=== PATIENT | male | born 1950 | race Caucasian/White ===

== ENCOUNTER → 2018-02-18 | Outpatient (CLI) | payer OTHER ==
[~2018-02-18] MED LIST: DIAZEPAM 10 MG TABLET. ONE; IOHEXOL 350 MG/ML 100 ML VIAL. ONE; IOHEXOL 350 MG/ML 50 ML VIAL. ONE; IV NORMAL SALINE 1000ML BAG 1,000 ML ONE; LIDOCAINE 1% Multi-Dose 50 ML VIAL. ONE; MIDAZOLAM HCL/PF 2 MG/2 ML VIAL. ONE; fentaNYL PF VIAL 100 MCG/2 ML VIAL ONE; hydrALAZINE 20 MG/ML VIAL. ONE
--- NOTE | 2018-02-19 11:12 | PCVCINTER ---
APPROVED REPORT Study performed: 02/18/2018 08:36:48 Patient Details Patient Status: Out-Patient Room #: 2 The patient is a 67 year-old Male Event Personnel Dontrell Garvin RT(R), Yesi Morin RN, Gen Mcconnell RT(R)(), Ekta Norris MD Indication Abnormal ECG, Dyspnea, Pre-op clearance Risk Factors HypercholesterolemiaPhysical Activity, Hypertension, Last Creatanine 0.9Tobacco History (Current/Recent(w/in 1 year)) Procedure Narrative The patient was brought electively to the Cardiac Catheterization Laboratory and was prepped and draped in a sterile manner. The right femoral was infiltrated with 1% Lidocaine subcutaneous anesthesia. A 4F sheath was inserted into the right femoral artery. Coronary angiography was performed using coronary diagnostic catheters. The right coronary system was accessed and visualized with a JR4 catheter. The left coronary system was accessed and visualized with a JL4 catheter. The left ventricle was accessed and visualized with a Angled Pigtail catheter. Left ventricular/Aortic Valve gradient assessed . Left ventriculogram was performed in MEZA projection. Hemostasis was obtained with manual pressure following sheath removal without any complications. The patient tolerated the procedure well and there were no complications associated with the procedure. There was no hematoma. Coronary Angiography The patient's coronary anatomy is right dominant. Diagnostic Cath Left MainThis is a patent vessel, with no flow-limiting lesions. LADThis is a moderate size caliber vessel, traversing the anterior wall and wrapping around the apex. There is a borderline stenosis, 50-70% in the proximal segment. Diagonal 1This is a patent vessel, with no flow-limiting lesions. CircumflexThis is a patent vessel, with no flow-limiting lesions. BU9Osjl is a moderate size caliber vessel, traversing the anterolateral wall and supplying several branches. This is a patent vessel with no flow-limiting lesions. FP5Hben is a small-caliber vessel, with no flow-limiting lesions. Right CoronaryThere is a severe, discrete stenosis at the distal segment, 80%. Supplies 2 small branches, PDA and RPL. Recommend medical therapy. Left Ventriculography The left ventricle is normal in size with normal contractility. The left ventricular ejection fraction is estimated to be 65%. Hemodynamics The aortic pressure is 132/65 mmHg with a mean of 94 mmHg. The left ventricular pressure is 136/1 mmHg with a mean of 14 mmHg. Conclusion 1. There is a borderline stenosis in the LAD. Recommend medical therapy. 2. There is a severe stenosis at the distal segment of the RCA, supplies 2 small branches. Medical therapy is recommended. 3. Normal LV systolic function. 4. Recommend aggressive risk factor management.
== END | disposition home or self-care (01) ==
LOC: PCVCINTER 08:14
PROVIDERS: ATTEND Internal Medicine Cardiovascular Disease
DX: I25.10 Atherosclerotic heart disease of native coronary artery without angina pectoris (principal); R94.31 Abnormal electrocardiogram [ECG] [EKG]; E78.00 Pure hypercholesterolemia, unspecified; I10 Essential (primary) hypertension; R60.9 Edema, unspecified; I65.23 Occlusion and stenosis of bilateral carotid arteries; Z72.0 Tobacco use; Z79.899 Other long term (current) drug therapy; Z79.82 Long term (current) use of aspirin; Z98.890 Other specified postprocedural states
CPT/HCPCS: 93458; C1751; C1769; C1894; J0360; J1644; J2250; J3010; J7030; Q9967

== ENCOUNTER → 2018-02-18 | Outpatient (CLI) | payer OTHER | END | disposition home or self-care (01) | LOC: PCVCCLINIC 12:52 | PROVIDERS: ATTEND Internal Medicine Cardiovascular Disease | DX: I25.10 Atherosclerotic heart disease of native coronary artery without angina pectoris (principal); I10 Essential (primary) hypertension; E78.00 Pure hypercholesterolemia, unspecified; R60.9 Edema, unspecified; F17.200 Nicotine dependence, unspecified, uncomplicated; Z79.82 Long term (current) use of aspirin | CPT/HCPCS: G0463 ==

== ENCOUNTER → 2018-03-14 | Outpatient (CLI) | payer OTHER ==
[~2018-03-14] MED LIST changes: -DIAZEPAM 10 MG TABLET. ONE; -IOHEXOL 350 MG/ML 100 ML VIAL. ONE; -IOHEXOL 350 MG/ML 50 ML VIAL. ONE; -IV NORMAL SALINE 1000ML BAG 1,000 ML ONE; -LIDOCAINE 1% Multi-Dose 50 ML VIAL. ONE; -MIDAZOLAM HCL/PF 2 MG/2 ML VIAL. ONE; +REGADENOSON 0.4 MG/5 ML DISP.SYRIN. IV ONE; -fentaNYL PF VIAL 100 MCG/2 ML VIAL ONE; -hydrALAZINE 20 MG/ML VIAL. ONE
--- NOTE | 2018-03-14 15:52 | PCVCIMAG ---
APPROVED REPORT Imaging Protocol: Rest Tc-99m/Stress Tc-99m 1 day Study performed: 03/14/2018 13:36:26 Indication: Abnormal EKG, CAD Patient Location: Out-Patient Stress Nurse: Kristy Cortes RN [place] Tech:Jackie SantiagoSHAYLAMT Ht: 5 ft 7 in Wt: 210 lbs BSA: 2.07 m2 HR: 77 bpm BP: 172/82 mmHg BMI: 32.88 Rhythm: Sinus Rhythm, RBBB, LBBB Medical History Medical History: HTN, Hyperlipidemia, Current Smoker Medications: ASA, Atrovastatin, Carvedilol Allergies: No known drug allergies Cardiac Risk Factors: Age Previous Cardiac Procedures: CATH 02/2018 Pretest Chest Pain Characteristics: No chest pain Exercise History: Sedentary Resting Data Rest SPECT myocardial perfusion imaging was performed in supine position 45 minutes following the intravenous injection of 10.7 mCi of Tc-99m Sestamibi. Time of rest injection: 1230 Administration Route: IV Administration Site: Right AC Pharmacologic Stress Pharmacologic stress test was performed by injecting Regadenoson 0.4 mg IV push over 10-15 seconds immediately followed by the intravenous injection of 3.4 mCi of Tc-99m Sestamibi. Time of stress injection: 1430 Date: 03/14/2018 Administration Route: IV Administration Site: Right AC Gated Stress SPECT was performed 40 minutes after stress injection. The images were gated to evaluate regional wall motion and calculate left ventricular ejection fraction. Stress Test Details Stress Test: Pharmacologic stress testing performed using 0.4 mg of regadenoson per 5 mL given IV over 10 seconds. Reason for pharmacologic stress test: doesn't walk with out aid. HRMax Heart Rate (APMHR): 150 bpm Resting HR: 77 bpmTarget HR (85% APMHR): 127 bpm Max HR Achieved: 109 bpm % of APMHR: 72 Recovery HR: 90 bpm BP Resting BP: 172/82 mmHg Max BP: 166/81 mmHg Recovery BP: 189/98 mmHg ECG Resting ECG: Sinus Rhythm, RBBB Stress ECG: Sinus Tachycardia, RBBB ST Change: Non-ischemic Recovery ECG: Sinus Rhythm, RBBB, LBBB Clinical Reason for Termination: Completed protocol Stress Symptoms: Lightheaded Exercise duration: 0 min 55 sec Symptoms resolved during recovery. Study Quality Study: Good Study Data Post stress, the left ventricular ejection was 82%.. SSS: 0 SRS: 0 SDS: 0 TID = 0.88. Perfusion There is a small area of mildly reduced uptake in the apical segment of the inferolateral wall which is seen on the stress images and improves on the resting images. This area thickens and moves normally and is most consistent with ischemia. Wall Motion Normal left ventricular wall motion. Nuclear Conclusion ECG Findings: negative for ischemia Clinical Findings: non-diagnostic Nuclear Findings: positive for ischemia Exercise Capacity: not assessed Left Ventricular Function: normal There is a small area of ischemia in the apical inferolateral segment. There is normal global and segmental LV systolic function.
== END | disposition home or self-care (01) ==
LOC: PCVCIMAG 12:20
PROVIDERS: ATTEND Internal Medicine Cardiovascular Disease
DX: I25.119 Atherosclerotic heart disease of native coronary artery with unspecified angina pectoris (principal); R94.31 Abnormal electrocardiogram [ECG] [EKG]; E78.00 Pure hypercholesterolemia, unspecified; F17.200 Nicotine dependence, unspecified, uncomplicated
CPT/HCPCS: 78452; 93017; A9500; J2785

== ENCOUNTER → 2018-09-17 | Outpatient (CLI) | payer OTHER ==
--- NOTE | 2018-09-17 15:23 | PCVCIMAG ---
APPROVED REPORT Study performed: 09/17/2018 14:30:06 EXAM: Comprehensive 2D, Doppler, and color-flow Echocardiogram Patient Location: Echo lab Room #: 2Status: routine BSA: 2.09 HR: 74 bpm Rhythm: NSR Other Information Study Quality: Adequate Risk Factors: Cardiac Risk Factors: Smoking, FHX of CAD, Hyperlipidemia, HTN Indications CAD Hypertension/HDD 2D Dimensions IVSd: 11.05 (7-11mm)LVOT Diam: 21.53 (18-24mm) LVDd: 48.88 mm PWd: 8.19 (7-11mm)Ascending Ao: 30.18 (22-36mm) LVDs: 28.10 (25-40mm) Left Atrium: 36.46 (27-40mm) Aortic Root: 25.56 mm LV Single Plane 4CH: 58.74 % LV Single Plane 2CH: 56.32 % Biplane EF: 57.5 % Volumes Left Atrial Volume (Systole) Single Plane 4CH: 51.11 mLSingle Plane 2CH: 60.31 mL Biplane LA Volume: 56.00 mLLA ESV Index: 27.00 mL/m2 Aortic Valve AoV Peak Oc.: 1.47 m/s AO Peak Gr.: 8.77 mmHgLVOT Max P.61 mmHg LVOT Max V: 1.12 m/s VAMSHI Vmax: 2.78 cm2 Mitral Valve E/A Ratio: 1.0 MV Decel. Time: 95.68 ms MV E Max Oc.: 0.77 m/s MV A Oc.: 0.78 m/s IVRT: 79.58 ms TDI E/Lateral E': 12.83E/Medial E': 12.83 Medial E' Co.: 0.06 m/s Lateral E' Oc.: 0.06 m/s Pulmonary Valve PV Peak Oc.: 1.09 m/sPV Peak Gr.: 4.71 mmHg Pulmonary Vein P Vein S: 0.64 m/sP Vein A: 0.41 m/s P Vein D: 0.57 m/sP Vein A Dur.: 90.0 msec P Vein S/D Ratio: 1.12 Tricuspid Valve TR Peak Oc.: 2.67 m/s TR Peak Gr.: 28.46 mmHg TV Vmax: 0.60 m/sPA Pressure: 35.00 mmHg Left Ventricle The left ventricle is normal size. There is normal LV segmental wall motion. Mild concentric left ventricular hypertrophy. Left ventricular systolic function is normal. The left ventricular ejection fraction is within the normal range. LVEF is 55-60%. Grade I - abnormal relaxation pattern. Right Ventricle The right ventricle is normal size. The right ventricular systolic function is normal. Atria The left atrium size is normal. The right atrium size is normal. Aortic Valve Aortic valve is probably trileaflet. Mild aortic valve sclerosis. No aortic regurgitation is present. There is no aortic valvular stenosis. Mitral Valve Mild mitral annular calcification. The mitral valve is normal in structure and function. There is no mitral valve regurgitation noted. No evidence of mitral valve stenosis. Tricuspid Valve The tricuspid valve is normal in structure. Mild tricuspid regurgitation with a PA pressure of 35 mmHg. Pulmonic Valve The pulmonary valve is normal in structure. There is no pulmonic valvular regurgitation. Great Vessels The aortic root is normal in size. Ascending aorta is not well visualized. Aortic arch is not well visualized. IVC is normal in size and collapses >50% with inspiration. Pericardium There is no pericardial effusion. There is no pleural effusion. <Conclusion> The left ventricle is normal size. Mild concentric left ventricular hypertrophy. Left ventricular systolic function is normal. Grade I - abnormal relaxation pattern. The right ventricle is normal size. The left atrium size is normal. Mild aortic valve sclerosis. Mild mitral annular calcification. Mild tricuspid regurgitation with a PA pressure of 35 mmHg.
== END | disposition home or self-care (01) ==
LOC: PCVCIMAG 14:10
PROVIDERS: ATTEND Internal Medicine Cardiovascular Disease
DX: I08.3 Combined rheumatic disorders of mitral, aortic and tricuspid valves (principal); I25.119 Atherosclerotic heart disease of native coronary artery with unspecified angina pectoris; R94.31 Abnormal electrocardiogram [ECG] [EKG]; E78.00 Pure hypercholesterolemia, unspecified; I10 Essential (primary) hypertension
CPT/HCPCS: 93306